=== PATIENT | male | born 1945 | race Caucasian/White ===

== ENCOUNTER 2018-10-10 06:00 | Day surgery (SDC) | payer BC ==
[~2018-10-10] VITALS: Ht 170.2 cm; Wt 83.0 kg
[2018-10-10 07:15] VITALS: Ht 170.2 cm; Wt 83.0 kg
[2018-10-10] MEDS ORDERED: METFORMIN (07:31)
[2018-10-10] MEDS ORDERED: AMLODIPINE (07:31)
[2018-10-10] MEDS ORDERED: FLOMAX (07:31)
[2018-10-10] MEDS ORDERED: ASPI-903 PO (07:31)
[2018-10-10] MEDS ORDERED: TAMSULOSIN (07:31)
[2018-10-10] MEDS ORDERED: ATORVASTATIN (07:31)
[2018-10-10] MEDS ORDERED: LOSARTAN (07:31)
[2018-10-10] MEDS ORDERED: CARVEDILOL (07:31)
[2018-10-10 07:52] VITALS: BP 165/79; PULSE 64; RESP 12
[2018-10-10] MEDS ORDERED: FENTAnyl 50 MCG/ML VIAL ONE (07:52)
[2018-10-10] MEDS ORDERED: PROPOFOL 20 ML ONE (07:52)
--- NOTE | 2018-10-10 07:53 | PREAC ---
Date/Time of Note Date/Time of Note DATE: 10/10/18 TIME: 07:52 Anesthesia Eval and Record Evaluation Time Pre-Procedure Interview DATE: 10/10/18 TIME: 07:52 Age 73 Sex male NPO: 8 hrs Preoperative diagnosis reening Planned procedure colonoscopy Past Medical History Past Medical History: Includes Cardio: HTN, Dyslipidemia, CAD Endo: Diabetes, Hypothyroid Surgery & Anesthesia Issues No known issue Meds Anticoagulation: No Beta George within 24 hr: Yes Reason Beta George not given: Pt. not on B-George Reported Medications [Tamsulosin] No Conflict Check 10/10/18 Aspirin* (Aspirin* Chew) 81 Mg Tab.chew, 81 MG PO DAILY, TAB.CHEW 10/10/18 [Flomax] No Conflict Check 10/10/18 [Atorvastatin] No Conflict Check 10/10/18 [Metformin] No Conflict Check 10/10/18 [Amlodipine] No Conflict Check 10/10/18 [Carvedilol] No Conflict Check 10/10/18 [Losartan] No Conflict Check 10/10/18 Meds reviewed: Yes Allergies Coded Allergies: No Known Allergy (Unverified , 10/10/18) Allergies Reviewed: Yes Labs/Studies Labs Reviewed: Reviewed by anesthesiologist test: N/A Studies: ECG (sr), CXR (nl) Pre-procedure Exam Airway: Adequate mouth opening Mallampati: Mallampati I Teeth: Normal Lung: Normal Heart: Normal ASA Physical Status ASA physical status: 2 Emergency: None Planned Anesthetic General/MAC: MAC Pre-operative Attestations Prior to commencing anesthesia and surgery, the patient was re-evaluated, there was verification of: *The patient's identity *The results of appropriate recent lab work and preoperative vital signs *The above evaluation not changing prior to induction *Anesthetic plan, risk benefits, alternative and complications discussed with patient/family; questions answered; patient/family understands, accepts and wis hes to proceed. TRACY JETT MD Oct 10, 2018 07:53
[2018-10-10 08:51] VITALS: BP 165/77; PULSE 68; RESP 16
[2018-10-10] MEDS ORDERED: ONDANSETRON 4 MG INJ IV PRN (09:00)
--- NOTE | 2018-10-10 11:31 | PAC ---
Date/Time of Note Date/Time of Note DATE: 10/10/18 TIME: 11:31 Post-Anesthesia Notes Post-Anesthesia Note Last documented vital signs Vital Signs Date Temp Pulse Resp B/P (MAP) Pulse Ox O2 O2 Flow FiO2 Time Delivery Rate 10/10/18 98.0 68 16 165/77 95 Room Air 08:51 (106) 10/10/18 98.0 07:52 Activity: WNL Respiratory function: WNL Cardiovascular function: WNL Mental status: Baseline Pain reasonably controlled: Yes Hydration appropriate: Yes Nausea/Vomiting absent: No TRACY JETT MD Oct 10, 2018 11:31
== END 2018-10-10 12:32 | disposition home or self-care (01) ==
LOC: GIL 06:00
PROVIDERS: ATTEND Internal Medicine Gastroenterology
DX: R19.4 Change in bowel habit (principal); K64.8 Other hemorrhoids; K57.30 Diverticulosis of large intestine without perforation or abscess without bleeding; I10 Essential (primary) hypertension; E11.9 Type 2 diabetes mellitus without complications; E03.9 Hypothyroidism, unspecified; I25.10 Atherosclerotic heart disease of native coronary artery without angina pectoris; E78.5 Hyperlipidemia, unspecified; Z79.82 Long term (current) use of aspirin; Z79.84 Long term (current) use of oral hypoglycemic drugs
CPT/HCPCS: 45378; 82962; 88305; J3010; Z7610